=== PATIENT | female | born 1935 | race Caucasian/White ===

== ENCOUNTER → 2016-08-05 | Outpatient (CLI) | payer OTHER, MEDICARE | LOC: LAB 09:23 | PROVIDERS: ATTEND Internal Medicine | DX: E03.9 Hypothyroidism, unspecified (principal) | CPT/HCPCS: 36415; 84443 ==

== ENCOUNTER → 2016-08-12 | Outpatient (CLI) | payer OTHER, MEDICARE | LOC: MOB LAB 11:25 | PROVIDERS: ATTEND Internal Medicine | DX: I50.42 Chronic combined systolic (congestive) and diastolic (congestive) heart failure (principal) | CPT/HCPCS: 36415; 83880 ==

== ENCOUNTER → 2016-10-28 | Outpatient (CLI) | payer OTHER, MEDICARE | LOC: SLEEP LAB 19:08 | PROVIDERS: ATTEND Internal Medicine | DX: G47.33 Obstructive sleep apnea (adult) (pediatric) (principal) | CPT/HCPCS: 95811 ==

== ENCOUNTER → 2016-11-12 | Outpatient (CLI) | payer OTHER, MEDICARE | LOC: MMPC 11:11 | PROVIDERS: ATTEND Internal Medicine | DX: I25.10 Atherosclerotic heart disease of native coronary artery without angina pectoris (principal); E03.9 Hypothyroidism, unspecified; E78.5 Hyperlipidemia, unspecified; R09.89 Other specified symptoms and signs involving the circulatory and respiratory systems | CPT/HCPCS: 99214; G0463 ==

== ENCOUNTER → 2016-11-26 | Outpatient (CLI) | payer OTHER, MEDICARE | LOC: MMPC 10:00 | PROVIDERS: ATTEND Podiatrist Foot & Ankle Surgery | DX: L60.3 Nail dystrophy (principal) | CPT/HCPCS: 11720 ×2; G0463 ==

== ENCOUNTER → 2016-12-24 | Outpatient (CLI) | payer OTHER, MEDICARE | LOC: MMPC 09:00 | PROVIDERS: ATTEND Physician Assistant Medical | DX: J30.1 Allergic rhinitis due to pollen (principal); H61.22 Impacted cerumen, left ear | CPT/HCPCS: 99213; G0463 ==

== ENCOUNTER 2018-09-20 08:12 | Inpatient (IN) ==
[2018-09-20] MEDS ORDERED: Sodium Chloride 0.9% 1,000 ML PRIMARY IV ONE (08:25)
[2018-09-20] MEDS ORDERED: PANTOPRAZOLE IV 40 MG VIAL IVP ONE (08:27)
--- NOTE | 2018-09-20 08:33 | PDOC ---
GI Bleed/Rectal Complaint HPI - General Chief Complaint: GI Bleed / Rectal Pain Stated Complaint: BLOODY STOOLS Date Seen by Provider: 09/20/18 Time Seen by Provider: 20:20 Source: POSITIVE: Patient Exam Limitations: POSITIVE: No limitations Nurse's Notes Reviewed & Considered: Yes - History of Present Illness Initial Comments: The patient is an 83-year-old female who presents to the emergency department with blood in her stool. She states that she woke up at approximately 6 AM this morning and had a bowel movement which was mostly darkish colored blood. She states that she has had 3 more bowel movements since then all containing mostly blood. She states that they have all been fairly good-sized bowel movements. She states that she was starting to feel weak at home and subsequently came here to the emergency department. She does have associated nausea however has not had any vomiting. She denies any current abdominal pain. She has had previous cholecystectomy and appendectomy. She also does take Plavix secondary to history of stents placed in 2014. She denies fevers or chills or any recent illness. - Patient Home Medications Home Medications: Home Medications vit C 250 mg-E 200 unit-zinc 40 mg-copper 1 al-yulctn-dnybwe capsule 250 cap PO BID cap 03/02/17 aspirin 81 mg chewable tablet 81 mg PO QDAY tab 07/22/17 nitroglycerin 0.4 mg sublingual tablet 0.4 mg SL Q5-15M PRN 07/22/17 omega-3 fatty acids-fish oil 360 mg-1,200 mg capsule 1 cap PO QDAY cap 07/22/17 clopidogrel 75 mg tablet 75 mg PO QDAY #90 tab 04/18/18 atorvastatin 40 mg tablet 40 mg PO QHS #90 tab 05/16/18 carvedilol 12.5 mg tablet 12.5 mg PO BID #180 tab 05/16/18 isosorbide mononitrate ER 30 mg tablet,extended release 24 hr 30 mg PO QDAY #90 tab 05/16/18 lisinopril 40 mg tablet 40 mg PO BID #180 tab 05/16/18 pantoprazole 40 mg tablet,delayed release 40 mg PO QDAY #90 tab 05/16/18 potassium chloride ER 10 mEq tablet,extended release 10 meq PO QDAY #30 tab 05/16/18 ropinirole 2 mg tablet 2 mg PO QDAY #90 tab 05/16/18 chlorthalidone 25 mg tablet 25 mg PO QDAY #90 tab 06/15/18 levothyroxine 100 mcg tablet 100 mcg PO QDAY #30 tab 06/30/18 calcium carbonate 600 mg calcium (1,500 mg) tablet 600 mg PO BID #180 tab 07/14/18 tizanidine 4 mg capsule 4 mg PO Q8H #60 cap 08/17/18 - Patient Allergies Allergies/Adverse Reactions: Allergies Allergy/AdvReac Type Severity Reaction Status Date / Time amlodipine Allergy Mild Dizziness Verified 09/20/18 08:26 levofloxacin [From Levaquin] AdvReac Severe NOT Verified 09/20/18 08:26 APPLICABLE Past Medical History - heen HEENT History: Cataracts, Hard of Hearing, Dentures/Partials Additional HEENT History: 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 Micro valve. CARDIAC STENT 2015 Respiratory History: Shortness of Breath, Pneumonia, Snoring Gastrointestinal History: GERD Additional Gastrointestinal History: H-PYLORI/HEMORRHOIDS / AORTIC ANEURISM Genitourinary History: Renal Failure, Other (please comment) Additional Genitourinary History: RENAL ARTERY STENOSIS/CHRONIC RENAL INSUFFICIENCY FROM CONTRAST. Third stage kidney failure. Endocrine History: Hypothyroidism, Other (please comment) Additional Endocrine History: GRAVES DISEASE. 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 SEVERAL YRS AGO Blood Disorders: Denies History Psychiatric History: Denies History History of Sexually Transmitted Diseases: No Cancer History: Denies History History of MDRO: No History of Other Communicable Diseases: No Alcohol Use: None In the Past 12 Months, Have Used or Abuse Any Substance: None Previous Surgical History: Yes Type / Date of Surgery: CATARACT EXT RIGHT /COLONOSCOPY/RENAL STENTING/CARDIAC CATH/BILATERAL DYLAN /APPY/TONSILS/THYROIDECTOMY/ CARDIAC STENT 2015 Anesthesia Reactions: Yes (PONV SEVERE WITH LEFT HIP TOTAL) Malignant Hyperthermia: No Significant Family History: Cancer, Hypertension Past Medical History Reviewed: Reviewed - No Changes ROS - Limitations ROS Limitations: No Limitations Constitution: DENIES: Chills, Fever Cardiovascular: REPORTS: Denies Cardiac Symptoms Respiratory: REPORTS: Denies Resp Symptoms, Cough Non Productive Neurological: REPORTS: Denies Neuro Symptoms Gastrointestinal: REPORTS: Nausea, Black Stools, Bloody Stools. DENIES: Abdominal Pain, Vomitting Musculoskeletal: REPORTS: Denies MS Symptoms Genitourinary: REPORTS: Denies Symptoms Eyes: REPORTS: Denies Symptoms ENT: REPORTS: Denies Symptoms Skin: DENIES: Rash GI Bleed / Rectal Complaint PE - General Appearance General Appearance: POSITIVE: Alert, Cooperative, No Acute Distress - HEENT HEENT: POSITIVE: Head Inspection Nml, Eyes Inspection Nml, Ears Inspection Nml, Nose Inspection Nml, Pharynx Inspect. Nml, Pale Conjunctivae - Neck Neck: POSITIVE: Lymphadenopathy. NEGATIVE: Normal Inspection - Respiratory Respiratory: POSITIVE: No Respiratory Distress, Breath Sounds Normal - Cardiovascular Cardiovascular: POSITIVE: Regular Rate and Rhythm, Heart Sounds Normal Peripheral Pulses: Dorsalis-pedis (R): 2+, Dorsalis-pedis (L): 2+ - Abdomen Abdomen: Soft: (All Quadrants), Normal Bowel Sounds: (All Quadrants), No Splenomegaly: (All Quadrants), No Hepatomegaly: (All Quadrants), No Guarding: (All Quadrants), No Rebound: (All Quadrants), No Distention: (All Quadrants) - Genital / Rectal Rectal: POSITIVE: Other (Stool is grossly bloody) - Skin Skin: POSITIVE: Color Normal - Extremities Extremity: Normal ROM: (All Extremities), Normal Inspection: (All Extremities) - Neurological / Psychological Neurological: POSITIVE: Oriented X3, lambskin trimmer Normal As Tested GI Bleed / Rectal Progress - Patient's Progress MDM / ED Course: On arrival the patient is hemodynamically stable. By history she has had 4 fairly large bowel movements containing mostly blood this morning. 2 large-bore IVs were initiated and she was typed and crossed for 2 units of packed red blood cells. Baseline labs and CT scan of the abdomen and pelvis were ordered. Patient care was transferred to Dr. White at 0835 with studies pending. - Consult Counseled: POSITIVE: Patient Patient Care Time - Estimated PCT Patient Care Time (In Minutes): 15 Vital Signs - VS Reviewed Vital Signs Reviewed: Yes Discharge Clinical Impression: GI bleed Discharge Disposition: Other (Patient care transferred to Dr. White at 8:35 AM) Condition: Stable Follow Up With: DIANE SWANN [Primary Care Provider] -
[2018-09-20 09:20] LABS: BASOPHILS # (AUTO) 0.03 10*3/UL; BASOPHILS % (AUTO) 0.4 % (0-1); EOSINOPHILS # (AUTO) 0.08 10*3/UL; EOSINOPHILS % (AUTO) 1.1 % (0-8); Hemoglobin [HGB] 9.9 g/dL (12.0-16.0); MEAN CORPUSCULAR HEMOGLOBIN 30.9 PG (27-31); MEAN CORPUSCULAR VOLUME 93.8 FL (81-99); MEAN PLATELET VOLUME 10.7 FL (7.4-12.2); MONOCYTES # (AUTO) 0.29 10*3/UL (0.3-0.8); MONOCYTES % (AUTO) 3.9 % (5-15); NEUTROPHILS # (AUTO) 5.68 10*3/UL; NEUTROPHILS % (AUTO) 75.8 % (50-80)
[2018-09-20 09:21] LABS: PLATELET MORPHOLOGY COMMENT NORMAL MORPHOLOGY (NORM); RBC MORPHOLOGY COMMENT NORMAL MORPHOLOGY (NORM); WBC MORPHOLOGY COMMENT NORMAL MORPHOLOGY (NORM)
[2018-09-20 10:36] LABS: BLOOD UREA NITROGEN 31 mg/dL (7-22); BUN/CREATININE RATIO 22.14 (6-20); SERUM ALBUMIN 3.7 g/dL (3.5-4.8)
--- NOTE | 2018-09-20 12:01 | PDOC ---
HPI - History of Present Illness Date of Service: 09/20/18 Time of Service: 12:00 Chief Complaint: blood in stools History of Present Illness: This very nice 83-year-old female who presented to the emergency room with bloody stools. Woke up this morning around 6 AM had a bowel movement which contained dark blood and not bright red and she states and since then had 3 more CONTAINING dark blood associated with some nausea but no vomiting denies any chest pain or abdominal pain she is on Plavix secondary to stents in 2014. She is talking in full sentences and appears comfortable here in the ER she did not take any of her medications this morning Past Medical History Medical History: 1. Coronary artery disease with recent stent insertion. On Plavix. 2. Hypertension. 3. Hypokalemia. 4. Possible congestive heart failure. 5. Postsurgical hypothyroidism. 6. Kristina's syndrome. 7. Graves' disease. 8. Cholecystectomy Surgical History: 1. Hip replacement 2. 2. Tonsillectomy. 3. Cataract surgery 2. 4. Appendectomy Pertinent Family History: Significant for dementia Past Social History: Patient does not smoke or drink. . Has 2 children one with diabetes. She worked as a patient care secretary. Tobacco Use: Former Smoker In the Past 12 Months, Have Used or Abuse Any of the Following Substance: None Medication / Allergies Home Medications: Home Medications Medication Instructions Recorded Confirmed Type vit C 250 mg-E 200 unit-zinc 40 250 cap PO BID cap 03/02/17 09/20/18 History mg-copper 1 mu-bzosac-abxecm capsule aspirin 81 mg chewable tablet 81 mg PO QDAY tab 07/22/17 09/20/18 History nitroglycerin 0.4 mg sublingual 0.4 mg SL Q5-15M PRN 07/22/17 09/20/18 History tablet omega-3 fatty acids-fish oil 360 1 cap PO QDAY cap 07/22/17 09/20/18 History mg-1,200 mg capsule clopidogrel 75 mg tablet 75 mg PO QDAY #90 tab 04/18/18 09/20/18 Rx atorvastatin 40 mg tablet 40 mg PO QHS #90 tab 05/16/18 09/20/18 Rx carvedilol 12.5 mg tablet 12.5 mg PO BID #180 tab 05/16/18 09/20/18 Rx isosorbide mononitrate ER 30 mg 30 mg PO QDAY #90 tab 05/16/18 09/20/18 Rx tablet,extended release 24 hr lisinopril 40 mg tablet 40 mg PO BID #180 tab 05/16/18 09/20/18 Rx pantoprazole 40 mg tablet,delayed 40 mg PO QDAY #90 tab 05/16/18 09/20/18 Rx release potassium chloride ER 10 mEq 10 meq PO QDAY #30 tab 05/16/18 09/20/18 Rx tablet,extended release ropinirole 2 mg tablet 2 mg PO QDAY #90 tab 05/16/18 09/20/18 Rx chlorthalidone 25 mg tablet 25 mg PO QDAY #90 tab 06/15/18 09/20/18 Rx levothyroxine 100 mcg tablet 100 mcg PO QDAY #30 tab 06/30/18 09/20/18 Rx calcium carbonate 600 mg calcium 600 mg PO BID #180 tab 07/14/18 09/20/18 Rx (1,500 mg) tablet tizanidine 4 mg capsule 4 mg PO Q8H #60 cap 08/17/18 09/20/18 Rx Allergies/Adverse Reactions: Allergies Allergy/AdvReac Type Severity Reaction Status Date / Time amlodipine Allergy Mild Dizziness Verified 09/20/18 08:26 levofloxacin [From Levaquin] AdvReac Severe NOT Verified 09/20/18 08:26 APPLICABLE Review of Systems - Review of Systems All Systems: Reviewed & No Additional Complaints Except as Stated - Respiratory Respiratory: DENIES: Negative System Review, Cough, Sputum, Dyspnea At Rest, Dyspnea with Exertion, Pleuritic Pain, Hemoptysis, Wheezing, Other, See HPI - Cardiovascular Cardiovascular: DENIES: Negative System Review, Chest Pain, Edema, Syncope, Palpitations, Orthopnea, Paroxysmal Nocturnal Dyspnea, Other, See HPI - Gastrointestinal Gastrointestinal / Abdominal: REPORTS: Nausea, Bloody Stool Exam - Vitals Vital Signs: Vital Signs Temperature 96.4 F Temperature Source Temporal Artery Scan Pulse Rate [Pulse Oximeter] 60 Respiratory Rate 18 Blood Pressure [Left Arm] 171/65 Pulse Ox 97 Oxygen Delivery Method Room Air Height 5 ft 7 in Weight 156 lb - General General Appearance: No Acute Distress, Cooperative - Head Head Exam: Normal Inspection, Normocephalic, Atraumatic - Eye Eye Exam: POSITIVE: Normal Appearance, PERRL, EOMI, No Scleral Icterus - Respiratory Respiratory Exam: POSITIVE: Clear to Auscultation - Bilaterally, Breathing Non Labored, Normal To Percussion, Normal to Percussion and Palpation - Cardiovascular Cardiovascular Exam: POSITIVE: RRR, No Murmur, No Clicks, No Gallops, No Rubs, PMI Non-Displaced - GI/Abdominal GI/Abdominal Exam: POSITIVE: Normal Bowel Sounds, Non Tender, Non Distended, Soft, No Masses, No Hepatomegaly, No Splenomegaly, No Organomegaly - Extremities Extremities Exam: POSITIVE: No Clubbing Present, No Edema Present, No Cyanosis Present Results - Labs CBC and BMP: 09/20/18 08:25 09/20/18 09:15 Assessment and Plan - Patient Problems (1) GI bleed Current Visit: Yes Status: Acute Comment: Most likely lower GI bleed, Dr. Kaushal Young was consult did, lactated ringer started at 125 an hour, she received Protonix IV in the ER, type and cross was for 2 units on hold I will hold more units as recommended by Dr. Kaushal Young. I will hold the Plavix and her aspirin continue other cardiac medications blood pressure seems to be fine at present time Code(s): K92.2 - Gastrointestinal hemorrhage, unspecified (2) Anemia Current Visit: Yes Status: Acute Code(s): D64.9 - Anemia, unspecified (3) Acute kidney failure Current Visit: No Status: Acute Code(s): N17.9 - Acute kidney failure, unspecified Qualifiers: Acute renal failure type: unspecified Qualified Code(s): N17.9 - Acute kidney failure, unspecified
[2018-09-20] MEDS ORDERED: LIDOCAINE W/ SODIUM BICARB 0.5 ML SYR SUBD PRN (12:46)
[2018-09-20] MEDS ORDERED: NITROGLYCERIN 0.4 MG SL TAB (BOTTLE OF 3) SL PRN (12:46)
[2018-09-20] MEDS ORDERED: PANTOPRAZOLE IV 40 MG VIAL IVP SCH (12:46)
[2018-09-20] MEDS ORDERED: ONDANSETRON 4 MG/2 ML VIAL IV PRN (12:46)
--- NOTE | 2018-09-20 12:47 | PDOC ---
GI Bleed/Rectal Complaint HPI - General Chief Complaint: GI Bleed / Rectal Pain Stated Complaint: BLOODY STOOLS Date Seen by Provider: 09/20/18 Time Seen by Provider: 08:50 Source: POSITIVE: Patient, Spouse, RN/MD Exam Limitations: POSITIVE: No limitations Nurse's Notes Reviewed & Considered: Yes - History of Present Illness Initial Comments: The patient is a 83-year-old female. Her brings her to the emergency room. Patient states that around 6 AM, approximately 3 hours MEAT SLICER she began to feel "queasy" and she had a bowel movement. She reports that the bowel movement was grossly bloody and dark red to black. She brings a specimen in with her which is strongly Hemoccult positive. She states that since onset of her symptoms she's had 4-5 loose bowel movements "like diarrhea" which have been bloody. Patient has not had any similar previous episodes. She is not on any anticoagulants. She states that she did have a myocardial infarction with a coronary artery stents placed and she is on Plavix. She states she hasn't abdominal aortic aneurysm and a history of hypertension. She's had a cholecystectomy, appendectomy and bilateral hip replacement. She does not routinely take nonsteroidal anti-inflammatory drugs, but she is on Plavix daily. She's not had any abdominal pain or dyspepsia. No history of previous similar episodes. No syncope or near-syncope. Patient was initially seen in the emergency room by Dr. Crocker, the emergency room doctor on duty upon her presentation. Dr. Crocker ordered a CMP, CBC, coag studies and a CT scan of her abdomen and pelvis. I assumed care of this patient at 8:50 AM. Body Location Affected: REPORTS: Abdomen (Gastrointestinal bleeding) Timing: REPORTS: Intermittent (4 bloody bowel movements in the past 3 hours) Duration: 4-6 hours Severity: Moderate Quality: REPORTS: Other (Patient denies any pain anywhere) Context: REPORTS: None Associated Symptoms: REPORTS: Maroon Stools Last BM (Date): 09/20/18 Number of Episodes of Diarrhea (in past 24hrs): 4 Similar Symptoms Previously: No Recent Care Received: REPORTS: Denies Any Prior Injuries Related to Current Complaint?: No - Patient Home Medications Home Medications: Home Medications vit C 250 mg-E 200 unit-zinc 40 mg-copper 1 zp-wqzjnh-hqphcu capsule 250 cap PO BID cap 03/02/17 aspirin 81 mg chewable tablet 81 mg PO QDAY tab 07/22/17 nitroglycerin 0.4 mg sublingual tablet 0.4 mg SL Q5-15M PRN 07/22/17 omega-3 fatty acids-fish oil 360 mg-1,200 mg capsule 1 cap PO QDAY cap 07/22/17 clopidogrel 75 mg tablet 75 mg PO QDAY #90 tab 04/18/18 atorvastatin 40 mg tablet 40 mg PO QHS #90 tab 05/16/18 carvedilol 12.5 mg tablet 12.5 mg PO BID #180 tab 05/16/18 isosorbide mononitrate ER 30 mg tablet,extended release 24 hr 30 mg PO QDAY #90 tab 05/16/18 lisinopril 40 mg tablet 40 mg PO BID #180 tab 05/16/18 pantoprazole 40 mg tablet,delayed release 40 mg PO QDAY #90 tab 05/16/18 potassium chloride ER 10 mEq tablet,extended release 10 meq PO QDAY #30 tab 05/16/18 ropinirole 2 mg tablet 2 mg PO QDAY #90 tab 05/16/18 chlorthalidone 25 mg tablet 25 mg PO QDAY #90 tab 06/15/18 levothyroxine 100 mcg tablet 100 mcg PO QDAY #30 tab 06/30/18 calcium carbonate 600 mg calcium (1,500 mg) tablet 600 mg PO BID #180 tab 07/14/18 tizanidine 4 mg capsule 4 mg PO Q8H #60 cap 08/17/18 - Patient Allergies Allergies/Adverse Reactions: Allergies Allergy/AdvReac Type Severity Reaction Status Date / Time amlodipine Allergy Mild Dizziness Verified 09/20/18 08:26 levofloxacin [From Levaquin] AdvReac Severe NOT Verified 09/20/18 08:26 APPLICABLE Past Medical History - heen HEENT History: Cataracts, Hard of Hearing, Dentures/Partials Additional HEENT History: 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 AAA. CARDIAC STENT 2016 Respiratory History: Shortness of Breath, Pneumonia, Snoring Gastrointestinal History: GERD Additional Gastrointestinal History: H-PYLORI/HEMORRHOIDS / AORTIC ANEURISM Genitourinary History: Renal Failure, Other (please comment) Additional Genitourinary History: RENAL ARTERY STENOSIS/CHRONIC RENAL INSUFFICIENCY FROM CONTRAST. Third stage kidney failure. Endocrine History: Hypothyroidism, Other (please comment) Additional Endocrine History: GRAVES DISEASE. 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/TIA SEVERAL YRS AGO Blood Disorders: Denies History Psychiatric History: Denies History History of Sexually Transmitted Diseases: No Female Reproductive History: Denies History Cancer History: Denies History In Past Year Been Physically Harmed or Verbally Threatened: No History of MDRO: No History of Other Communicable Diseases: No Tobacco Use: Former Smoker Alcohol Use: None In the Past 12 Months, Have Used or Abuse Any Substance: None Previous Surgical History: Yes Type / Date of Surgery: CATARACT EXT RIGHT /COLONOSCOPY/RENAL STENTING/CARDIAC CATH/BILATERAL DYLAN /APPY/TONSILS/THYROIDECTOMY/ CARDIAC STENT 2016/ CHOLECYSTECTOMY Anesthesia Reactions: Yes (PONV SEVERE WITH LEFT HIP TOTAL) Malignant Hyperthermia: No Significant Family History: Cancer, Hypertension Past Medical History Reviewed: Reviewed - No Changes ROS - Limitations ROS Limitations: No Limitations Constitution: REPORTS: Denies Symptoms Cardiovascular: REPORTS: Denies Cardiac Symptoms Respiratory: REPORTS: Denies Resp Symptoms Neurological: REPORTS: Denies Neuro Symptoms Gastrointestinal: REPORTS: Nausea, Bloody Stools Endocrine: REPORTS: Denies Symptoms Musculoskeletal: REPORTS: Denies MS Symptoms Genitourinary: REPORTS: Denies Symptoms Eyes: REPORTS: Denies Symptoms ENT: REPORTS: Denies Symptoms Skin: REPORTS: Denies Skin Symptoms, Other (Pale) Lympathic: REPORTS: Denies Lympathic Symptoms Immunologic: POSITIVE: Denies Symptoms Psychiatric: POSITIVE: Denies Psych Symptoms GI Bleed / Rectal Complaint PE - General Appearance General Appearance: POSITIVE: Alert, Cooperative, No Acute Distress, No Evidence of Trauma - HEENT HEENT: POSITIVE: Head Inspection Nml, Eyes Inspection Nml, Ears Inspection Nml, Nose Inspection Nml, Oral/Dental Inspect. Nml, Pharynx Inspect. Nml, PERRL, EOMI - Neck Neck: POSITIVE: Normal Inspection, No Apparent Injury - Respiratory Respiratory: POSITIVE: No Respiratory Distress, Breath Sounds Normal, Chest Non- Tender - Cardiovascular Cardiovascular: POSITIVE: Regular Rate and Rhythm Peripheral Pulses: Radial (R): 2+, Radial (L): 2+ - Abdomen Abdomen: Soft: (All Quadrants), Normal Bowel Sounds: (All Quadrants), Denies Tenderness: (All Quadrants), No Splenomegaly: (All Quadrants), No Hepatomegaly: (All Quadrants), No Guarding: (All Quadrants), No Rebound: (All Quadrants), No Palpable Pulse: (All Quadrants), No Palpabale Mass: (All Quadrants), No Distention: (All Quadrants), No Rigidity: (All Quadrants) - Genital / Rectal Rectal: POSITIVE: Non-Tender, Bloody Stool (Maroon-colored stool), Heme Positive Stool. NEGATIVE: Heme Negative Stool, Black Stool - Skin Skin: POSITIVE: No Rash, Warm, Dry. NEGATIVE: Color Normal (Patient pale) - Extremities Extremity: Non-Tender: (All Extremities), Normal ROM: (All Extremities), Normal Inspection: (All Extremities) - Neurological / Psychological Neurological: POSITIVE: Affect Apporpriate, Oriented X3, hog grader Normal As Tested, Motor Normal, Sensation Normal GI Bleed / Rectal Progress - Results Reviewed by me Xrays/CTs/US Reviewed by me: No Discussed with Radiologist: No Radiology Findings: CT scan abdomen and pelvis without contrast has been accomplished, but radiologist has not yet reviewed the findings. Lab Results Reviewed by Me: Yes Lab Results:: Laboratory Results 09/20/18 09/20/18 09/20/18 08:25 08:25 09:15 WBC 7.49 RBC 3.20 L Hgb 9.9 L Hct 30.0 L MCV 93.8 MCH 30.9 MCHC 33.0 RDW Std Deviation 42.8 RDW Coeff of Ciara 13.0 Plt Count 221 MPV 10.7 Immature Gran % (Auto) 0.1 Neut % (Auto) 75.8 Lymph % (Auto) 18.7 [place] % (Auto) 3.9 L Eos % (Auto) 1.1 Baso % (Auto) 0.4 Immature Gran # (Auto) 0.01 Neut # (Auto) 5.68 Lymph # (Auto) 1.40 [place] # (Auto) 0.29 L Eos # (Auto) 0.08 Baso # (Auto) 0.03 WBC Morphology Comment Normal morphology Plt Morphology Comment Normal morphology RBC Morph Comment Normal morphology PT 10.0 INR 0.98 APTT Sodium 136 Potassium 4.7 Chloride 106 Carbon Dioxide 23 Anion Gap 7 BUN 31 H Creatinine 1.4 H Estimated GFR Ammonium Sulfate Operator BUN/Creatinine Ratio 22.14 H Glucose 87 Calculated Osmolality 287.0 Calcium 9.6 Magnesium 1.5 L Total Bilirubin 0.6 AST 23 ALT 14 Alkaline Phosphatase 61 C-Reactive Protein < 0.5 Total Protein 6.0 L Albumin 3.7 Globulin 2.3 L Albumin/Globulin Ratio 1.60 Blood Type Antibody Screen Crossmatch 09/20/18 09/20/18 09:15 09:15 WBC RBC Hgb Hct MCV MCH MCHC RDW Std Deviation RDW Coeff of Ciara Plt Count MPV Immature Gran % (Auto) Neut % (Auto) Lymph % (Auto) [place] % (Auto) Eos % (Auto) Baso % (Auto) Immature Gran # (Auto) Neut # (Auto) Lymph # (Auto) [place] # (Auto) Eos # (Auto) Baso # (Auto) WBC Morphology Comment Plt Morphology Comment RBC Morph Comment PT INR APTT 18.7 L Sodium Potassium Chloride Carbon Dioxide Anion Gap BUN Creatinine Estimated GFR BUN/Creatinine Ratio Glucose Calculated Osmolality Calcium Magnesium Total Bilirubin AST ALT Alkaline Phosphatase C-Reactive Protein Total Protein Albumin Globulin Albumin/Globulin Ratio Blood Type O NEGATIVE Antibody Screen Negative Crossmatch See Detail CBC and BMP: 09/20/18 08:25 09/20/18 09:15 - Patient's Progress Pain Medication Addressed: POSITIVE: Not Applicable School/Work Release Addressed: POSITIVE: Not Applicable Re-Examine Time:: 11:00 Re-Examine Comment: Results of laboratory studies discussed with patient and her . Hemoglobin 9.9 and hematocrit 30.0. Blood has been typed and s creened. Case was discussed with Dr. Winkler, hospitalist and Dr. Young, surgeon. Patient is admitted by Dr. Hurley with consultation to Dr. Young for further evaluation and treatment. Status: POSITIVE: Unchanged, Re-Examined - Consult Consult (If Yes, Name of Consulting MD & Time Called): Yes (Dr. Winkler, hospitalist and Dr. Young, surgeon [id number],) Consulting MD will see pt:: [place] [facility] [place] Counseled: POSITIVE: Patient, Family, RE: Lab Results, RE: DX, RE: Need for F/U Patient Care Time - Estimated PCT Patient Care Time (In Minutes): 50 Vital Signs - Recent Vital Signs Vital Signs: Vital Signs (Last 8 hours) Temp Pulse Resp BP Pulse Ox 09/20/18 08:25 96.4 F L 60 18 171/65 97 - VS Reviewed Vital Signs Reviewed: Yes Discharge Clinical Impression: GI bleed Discharge Disposition: Admit to Inpatient Condition: Stable Follow Up With: DIANE SWANN [Primary Care Provider] - Date Decision to Admit to Inpatient: 09/20/18 Time Decision to Admit to Inpatient: 11:00
[2018-09-20] MEDS: Lactated Ringers 1,000 ML PRIMARY IV SCH ×2 (13:57→22:11)
[2018-09-20] MEDS ORDERED: Magnesium Sulfate 2gm (Premix) 2 GM/50 ML BAG IV ONE (15:37)
[2018-09-20 18:26] LABS: BASOPHILS # (AUTO) 0.02 10*3/UL; BASOPHILS % (AUTO) 0.3 % (0-1); EOSINOPHILS # (AUTO) 0.05 10*3/UL; EOSINOPHILS % (AUTO) 0.8 % (0-8); Hematocrit [HCT] 22.4 % (37.0-47.0); Hemoglobin [HGB] 7.3 g/dL (12.0-16.0); LYMPHOCYTES # (AUTO) 2.66 10*3/uL; MEAN CORPUSCULAR HEMOGLOBIN 30.5 PG (27-31); MEAN CORPUSCULAR HGB CONC 32.6 g/dL (33-37); MEAN CORPUSCULAR VOLUME 93.7 FL (81-99); MEAN PLATELET VOLUME 10.1 FL (7.4-12.2); MONOCYTES # (AUTO) 0.33 10*3/UL (0.3-0.8); MONOCYTES % (AUTO) 5.1 % (5-15); NEUTROPHILS # (AUTO) 3.35 10*3/UL; NEUTROPHILS % (AUTO) 52.2 % (50-80); RED BLOOD COUNT 2.39 10^6/uL (4.20-5.40)
[2018-09-20 18:27] LABS: PLATELET MORPHOLOGY COMMENT NORMAL MORPHOLOGY (NORM); RBC MORPHOLOGY COMMENT NORMAL MORPHOLOGY (NORM); WBC MORPHOLOGY COMMENT NORMAL MORPHOLOGY (NORM)
--- NOTE | 2018-09-20 19:00 | CONSULT ---
Consult Note - Consult Consult Date: 09/20/18 (patient was seen initially at 12:30 PM) Reason for Consult: PreOp Consulation : General Surgery Requesting Physician: Dr. Hao Lopes Primary Care Provider: Corby Livingston MD - History of Present Illness History of Present Illness: The patient is an 83-year-old female who reports she woke up about 4 AM with the need to have a bowel movement. She had a mostly liquid stool and noticed that it was bloody. There was some feces in it as well. She had a total of 4-5 bloody bowel movements between 4 and 6 AM. She presented to the emergency room for the same. She brought in a stool sample which was grossly positive. Her digital rectal exam showed gross blood. She has not had any further bloody bowel movements since arrival to the hospital. That was roughly 8 AM. She has never passed bright red blood per rectum in the past. Her stools tend to be loose to constipated. She denies change in the size or the shape of the stool. She denies a change in her bowel habits except for today. She denies abdominal or anal pain. She had a colonoscopy in approximately 2007. She had a CT scan this morning which shows sigmoid diverticulosis. She mentioned to me she was told she had an abdominal aortic aneurysm but none is seen on her CT scan from this morning. I saw her initially in the emergency room about 12:30. I am just now dictating the note. The patient has had stable vitals. Patient denies a history of heartburn although she is on pantoprazole. Sometimes she feels belchy. She reports she had a remote history of an ulcer. She was nauseated earlier this morning but is no longer nauseated now. Patient was slightly anemic in July 2018. Her hemoglobin was 11.2. On arrival to the emergency room her hemoglobin was 9.4 and her hematocrit was 30. At 5 PM tonight her hemoglobin dropped to 7.3 and her hematocrit dropped to 22.4. This was following hydration. The hospitalist who is aware and I expect she will get 2 units of blood shortly. Again she has passed no further bright red blood or even maroon blood per rectum. Review of Systems - Gastrointestinal Gastrointestinal / Abdominal: REPORTS: Nausea, Diarrhea, Constipation, Bloody Stool, Bright Red Blood per Rectum, See HPI Past Medical History Medical History: 1. Coronary artery disease with stent insertion. On Plavix. History of renal stent placement. History of myocardial infarction. 2. Hypertension. 3. Hypokalemia. 4. Possible congestive heart failure. 5. Postsurgical hypothyroidism. 6. Kristina's syndrome. 7. Graves' disease. 8. Stage III kidney disease Surgical History: 1. Hip replacement 2. 2. Tonsillectomy and adenoidectomy. 3. Cataract surgery 2. 4. Appendectomy. 5. Status post cholecystectomy. 6. History of colonoscopy in approximately 2007 Pertinent Family History: Significant for dementia Past Social History: Patient does not smoke or drink. . Has 2 children one with diabetes. She worked as a secretary bookkeeper. Tobacco Use: Former Smoker In the Past 12 Months, Have Used or Abuse Any of the Following Substance: None Medication / Allergies Home Medications: Home Medications Medication Instructions Recorded Confirmed Type vit C 250 mg-E 200 unit-zinc 40 250 cap PO BID cap 03/02/17 09/20/18 History mg-copper 1 [id number] capsule aspirin 81 mg chewable tablet 81 mg PO QDAY tab 07/22/17 09/20/18 History nitroglycerin 0.4 mg sublingual 0.4 mg SL Q5-15M PRN 07/22/17 09/20/18 History tablet omega-3 fatty acids-fish oil 360 1 cap PO QDAY cap 07/22/17 09/20/18 History mg-1,200 mg capsule clopidogrel 75 mg tablet 75 mg PO QDAY #90 tab 04/18/18 09/20/18 Rx atorvastatin 40 mg tablet 40 mg PO QHS #90 tab 05/16/18 09/20/18 Rx carvedilol 12.5 mg tablet 12.5 mg PO BID #180 tab 05/16/18 09/20/18 Rx isosorbide mononitrate ER 30 mg 30 mg PO QDAY #90 tab 05/16/18 09/20/18 Rx tablet,extended release 24 hr lisinopril 40 mg tablet 40 mg PO BID #180 tab 05/16/18 09/20/18 Rx pantoprazole 40 mg tablet,delayed 40 mg PO QDAY #90 tab 05/16/18 09/20/18 Rx release potassium chloride ER 10 mEq 10 meq PO QDAY #30 tab 05/16/18 09/20/18 Rx tablet,extended release ropinirole 2 mg tablet 2 mg PO QDAY #90 tab 05/16/18 09/20/18 Rx chlorthalidone 25 mg tablet 25 mg PO QDAY #90 tab 06/15/18 09/20/18 Rx levothyroxine 100 mcg tablet 100 mcg PO QDAY #30 tab 06/30/18 09/20/18 Rx calcium carbonate 600 mg calcium 600 mg PO BID #180 tab 07/14/18 09/20/18 Rx (1,500 mg) tablet tizanidine 4 mg capsule 4 mg PO Q8H #60 cap 08/17/18 09/20/18 Rx Allergies/Adverse Reactions: Allergies Allergy/AdvReac Type Severity Reaction Status Date / Time amlodipine Allergy Mild Dizziness Verified 09/20/18 13:06 levofloxacin [From Levaquin] AdvReac Severe NOT Verified 09/20/18 13:06 APPLICABLE Results - Labs CBC and BMP: 09/20/18 18:23 09/20/18 09:15 - Imaging Status: Image Reviewed by Me (And discussed with the radiologist. No gross abnormalities per his verbal report.) Exam - Vitals Vital Signs: Vital Signs Temperature 98.5 F Temperature Source Oral Pulse Rate [Pulse Oximeter] 56 Pulse Rate 54 Respiratory Rate 16 Blood Pressure [Left Arm] 145/45 Blood Pressure 169/103 Pulse Ox 94 Oxygen Delivery Method Room Air Height 5 ft 7 in Weight 153 lb 12.8 oz - General General Appearance: No Acute Distress, Cooperative, Obese Additional General Exam Details: Pale. - Respiratory Respiratory Exam: POSITIVE: Clear to Auscultation - Bilaterally, Breathing Non Labored - Cardiovascular Cardiovascular Exam: POSITIVE: RRR, No Murmur - GI/Abdominal GI/Abdominal Exam: POSITIVE: Normal Bowel Sounds, Non Tender, Non Distended, Soft - Rectal Rectal Exam: POSITIVE: Deferred (Deferred. Done in the emergency room with grossly Hemoccult positive stool) - Neurological Neurological Exam: POSITIVE: Alert, Oriented x 3 - Psychiatric Psychiatric Exam: POSITIVE: Normal Affect, Normal Mood Assessment and Plan - Patient Problems (1) Acute lower GI bleeding Current Visit: Yes Status: Acute Priority: High Onset Date: 09/20/18 Comment: Most likely diverticular. Has not passed any blood in the last 13 hours. Most likely resolved. Patient needs 2 units of blood. We will continue to monitor in the ICU. If further bleeding we will do an emergent upper and lower endoscopy. Consider tagged red cell scan pending her clinical course. The possibility of operative intervention was also discussed with the patient and her . Patient will need upper and lower endoscopy on an elective basis in the fairly near future. The above has been discussed with the patient and her family as well as the hospitalist. I will check her in the morning. Code(s): K92.2 - Gastrointestinal hemorrhage, unspecified
--- NOTE | 2018-09-20 19:41 | DI ---
CT ABDOMEN SCAN WITHOUT IV CONTRAST, 09/20/2018 11:11 AM : Clinical History: Gastrointestinal bleeding. Previous Exam: 07/20/2017. IV Contrast: None administered. Oral Contrast: No oral contrast ordered. Rectal Contrast: No rectal contrast ordered. Lungs: No infiltrate or effusion. The patient either has a prosthetic mitral valve or mitral valve an nulus is heavily calcified. The right and left ventricular chambers are visible on this noncontrast s tudy. This would either indicate severe anemia or there is increased density in the myocardium due to a deposition process such as amyloidosis. Liver: Normal. Gallbladder: Status post cholecystectomy. Common bile duct measures 6 mm. Adrenal Glands: Normal. Spleen: Normal. Pancreas: Normal. Kidneys: Normal size, shape, position and contour. No hydronephrosis or hydroureter. No renal or uret eral calculi. A stent is present in the right renal artery. Lymph Nodes: Normal. Masses: None. Ascites: No ascites. Free Air: None. Spine: Normal lower thoracic and lumbar spine. Osteoporosis. READIN. Normal CT abdomen scan without IV contrast. 2. This patient either has severe anemia or has increased density of the myocardium secondary to dep osition disease such as amyloidosis. CT PELVIS SCAN WITHOUT IV CONTRAST, 09/20/2018 11:11 AM: Clinical History: See above. Previous Exam: 07/20/2017. Contrast: None administered. Masses: No masses or enhancing lesions. Ascites: None. Free Air: None. Lymph Nodes: No adenopathy. Appendix: Not identified. No cecal or right lower quadrant inflammatory mass. Small Bowel: Normal small bowel, terminal ileum, and ileocecal valve. Colon: Normal. 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 Bladder: Normal. Hernias: None. Bony Pelvis: Normal sacrum and pelvic bones. Status post bilateral total hip replacements. READING: Normal CT scan of the pelvis without IV contrast. Osteoporosis.
[2018-09-20] MEDS: ATORVASTATIN 40 MG TABLET PO SCH (20:17)
[2018-09-20] MEDS: PANTOPRAZOLE IV 40 MG VIAL IVP SCH (20:17)
[2018-09-20] MEDS ORDERED: CARVEDILOL 12.5 MG PO SCH (21:00)
[2018-09-20] MEDS: Ropinirole Tab 1 MG TAB PO SCH (22:11)
[2018-09-20 23:23] LABS: MEAN CORPUSCULAR HEMOGLOBIN 30.5 PG (27-31); MEAN CORPUSCULAR HGB CONC 32.5 g/dL (33-37); MEAN CORPUSCULAR VOLUME 93.8 FL (81-99); MEAN PLATELET VOLUME 10.6 FL (7.4-12.2); RED BLOOD COUNT 2.1 10^6/uL (4.20-5.40)
[2018-09-20 23:27] LABS: Hematocrit [HCT] 19.7 % (37.0-47.0); Hemoglobin [HGB] 6.4 g/dL (12.0-16.0)
[2018-09-20] MEDS ORDERED: methylPREDNISolone 125 MG/2 ML VIAL IVP ONE (23:29)
[2018-09-20] MEDS ORDERED: ACETAMINOPHEN 500 MG TABLET PO ONE (23:29)
[2018-09-20] MEDS ORDERED: FUROSEMIDE 10 MG/1 ML - 2 ML VIAL IVP ONE (23:30)
[2018-09-20] MEDS ORDERED: Sodium Chloride 0.9% 500 ML PRIMARY IV ONE (23:38)
[2018-09-20] MEDS ORDERED: Sodium Chloride 0.9% 500 ML PRIMARY IV SCH (23:45)
[2018-09-21] MEDS: Lactated Ringers 1,000 ML PRIMARY IV SCH ×5 (04:06→20:58)
[2018-09-21 05:46] LABS: BASOPHILS # (AUTO) 0.01 10*3/UL; BASOPHILS % (AUTO) 0.1 % (0-1); EOSINOPHILS # (AUTO) 0 10*3/UL; EOSINOPHILS % (AUTO) 0 % (0-8); Hematocrit [HCT] 32.4 % (37.0-47.0); Hemoglobin [HGB] 11.2 g/dL (12.0-16.0); MEAN CORPUSCULAR HEMOGLOBIN 31.3 PG (27-31); MEAN CORPUSCULAR HGB CONC 34.6 g/dL (33-37); MEAN CORPUSCULAR VOLUME 90.5 FL (81-99); MEAN PLATELET VOLUME 10.7 FL (7.4-12.2); MONOCYTES # (AUTO) 0.04 10*3/UL (0.3-0.8); MONOCYTES % (AUTO) 0.5 % (5-15); NEUTROPHILS # (AUTO) 6.37 10*3/UL; NEUTROPHILS % (AUTO) 86.8 % (50-80); RED BLOOD COUNT 3.58 10^6/uL (4.20-5.40)
[2018-09-21 05:48] LABS: PLATELET MORPHOLOGY COMMENT NORMAL MORPHOLOGY (NORM); RBC MORPHOLOGY COMMENT NORMAL MORPHOLOGY (NORM); WBC MORPHOLOGY COMMENT NORMAL MORPHOLOGY (NORM)
[2018-09-21 06:06] LABS: BLOOD UREA NITROGEN 32 mg/dL (7-22); BUN/CREATININE RATIO 24.61 (6-20)
[2018-09-21] MEDS ORDERED: LIDOCAINE HCL 2 % 10 ML JELLY URO-JECT TOPICAL PRN (06:07)
[2018-09-21] MEDS: LEVOTHYROXINE 100 MCG TABLET PO SCH (06:08)
[2018-09-21 07:07] LABS: Hematocrit [HCT] 35.9 % (37.0-47.0); Hemoglobin [HGB] 12.2 g/dL (12.0-16.0)
[2018-09-21] MEDS ORDERED: PROPOFOL 10 MG/1 ML (200 MG/20 ML) VIAL IV ONE ×3 (07:33→08:21)
[2018-09-21] MEDS ORDERED: LIDOCAINE 2% VISCOUS(20 MG/1 ML) - 15 ML UD CUP PO ONE (07:33)
[2018-09-21] MEDS ORDERED: LIDOCAINE W/ SODIUM BICARB 0.5 ML SYR ONE (07:59)
--- NOTE | 2018-09-21 08:15 | PDOC(PROG) ---
Date of Service: 09/21/18 Time of Service: 07:15 Interval History: The patient did well through the night until 4 AM. She had an urge to have a bowel movement. She had stool and urine. It was approximately 500 mL of bloody fluid. It was the first thing she had passed per rectum since 6 AM yesterday morning. Her vital signs were stable. She was getting her second unit of blood. I decided to have her finish her blood product and then another hemoglobin and hematocrit. I got called at 6 AM that she had another 600 mL of mixed urine and stool. I arrived at the hospital to evaluate the patient. Her pretransfusion hemoglobin and hematocrit were 6.4 and 19.7 respectively. Post the second unit she was 11 and 32. An hour later she was 12 and 36. These numbers are incongruent with her pretransfusion hematocrit and 2 units of blood. I decided to proceed with upper and lower endoscopy. This was discussed with the patient. Objective : Data - Labs CBC and BMP: 09/21/18 07:06 09/21/18 05:35 - Vital Signs Vital Signs and I&O: Vital Signs - Last Taken Temperature 98.5 F 09/21/18 06:25 Pulse Rate 66 09/21/18 06:25 Respiratory Rate 16 09/21/18 06:25 Blood Pressure 169/66 09/21/18 06:25 Pulse Ox 95 09/21/18 06:25 Intake and Output (24hr x 4 totals) 09/19/18 09/20/18 09/21/18 09/22/18 05:59 05:59 05:59 05:59 Intake Total 2948 / 2948 Output Total 1450 / 1450 Balance 1498 / 1498 Objective : Exam - General General Appearance: No Acute Distress, Cooperative - Respiratory Respiratory Exam: Clear to Auscultation - Bilaterally, Breathing Non Labored - Cardiovascular Cardiovascular Exam: RRR, No Murmur - GI/Abdominal GI/Abdominal Exam: Normal Bowel Sounds, Non Tender, Non Distended, Soft Assessment and Plan - Patient Problems (1) Acute lower GI bleeding Current Visit: Yes Status: Acute Priority: High Onset Date: 09/20/18 Comment: Proceed with upper and lower endoscopy.The procedure has been discussed with the patient in complete yet simple terms including benefits, risks, and alternatives. All questions have been answered. Informed consent has been obtained. Code(s): Burke92.2 - Gastrointestinal hemorrhage, unspecified
[2018-09-21] MEDS ORDERED: Ropinirole Tab 1 MG TAB PO SCH (09:00)
--- NOTE | 2018-09-21 09:16 | CRNA.PROGR ---
Post Anesthesia Phase II - Post Anesthesia Phase II Patient Stable and Discharged To: Phase II Care Assumed By Surgeon: Stef Young MD Temperature: 98.5 F Pulse Rate: 62 Respiratory Rate: 16 Blood Pressure: 166/63 Pulse Ox: 95 Total Dave Score at Discharge: 10 Post Anesthesia Discharge Criteria Met: Yes
--- NOTE | 2018-09-21 09:16 | CRNA.PROGR ---
Anesthesia Time - Procedure/Recovery Time Start Date: 09/21/18 End Date: 09/21/18 Anesthesia : Time In: 07:35 Anesthesia : Time Out: 08:46 Anesthesia : Total Time: 71 - Total Anesthesia Time Total Anesthesia Time (minutes): 71 - Other Weight: 68.946 kg Height: 5 ft 7 in Body Mass Index (BMI): 23.8 Physical Status: P3 Anesthesia Type: MAC (EGD/Colonoscopy, inpt, GI Bleed)
--- NOTE | 2018-09-21 09:43 | GEN.OPNOTE ---
EGD / Colonoscopy Report Surgery Date: 09/21/18 Preoperative Diagnosis: GI bleed-presumed lower. Postoperative Diagnosis: Same. Diverticulosis. No active bleeding. Procedure: #1 esophagogastroduodenoscopy. #2 incomplete colonoscopy past the splenic flexure. Surgeon: Stef Young MD Anesthesia Provider: Claus De Leon CRNA Anesthesia Type: MAC Indications: See note from earlier today. Patient presented yesterday having had 4 bloody bowel movements. She did not have any more until four this morning. She had one at 4 AM and 1 at 6 AM. She was taken for endoscopy for evaluation. EGD Findings: Esophagus: [Normal] GE Junction : [Normal] Fundus : [Normal] Body : [Normal] Prepyloric : [Normal] Small Intestine : [Normal] A lubricated flexible upper endoscope was inserted and passed through the esophagus and stomach into the duodenum. The entire endoscopy was normal. There was no blood anywhere in the upper GI tract. The scope was withdrawn completing the procedure. Colonsocopy Findings: Prep : [No prep done.] Cecum : [Not visualized.] Ascending : [The light was seen in the ascending colon. There was old dark clots on the wall of the bowel. No evidence of active bleeding.] Transverse : [No active bleeding.] Sigmoid : [Extensive diverticulosis. No active bleeding.] Rectum : [No active bleeding.] Digital Rectal Exam : [No gross perianal pathology.] A lubricated flexible colonoscope was inserted and passed to the ascending colon. The light was seen in the ascending colon. It was very difficult to visualize. A suction securities research analyst was used to clear old blood. I could not procee d further than the mid ascending colon. Irrigation and suctioning were used to clear the blood as possible. The scope was slowly withdrawn. There is blood and clot. There was no evidence of active bleeding. There is no fresh blood. There is extensive sigmoid diverticulosis. The scope was withdrawn completing the procedure. The patient tolerated all aspects of the procedure well without complication. She was taken back to the intensive care unit in stable condition. I discussed the findings with hospitalist. Would recommend keeping the patient nothing by mouth. Need to check a hemoglobin and hematocrit every 4 hours. Keep 2 units of blood available at all times. Continue to monitor for stability and transfuse as necessary. For evidence of active bleeding would do a tagged red cell scan if possible. If we get up to 6 units of blood and we can not keep ahead we'll have to consider sigmoid colectomy. This has been discussed with the hospitalist as well as the patient. Endoscopy Procedures - Endoscopy Procedures Primary Endoscopy Procedure: 47095 : Colonoscopy Secondary Endoscopy Procedure: 76245 : EGD, Diagonstic
--- NOTE | 2018-09-21 09:57 | PDOC(PROG) ---
Interval History: Patient is back from EGD, colonoscopy old blood was found no active bleeding patient is stable has no complaints blood pressure stable Objective : Data - Labs CBC and BMP: 09/21/18 07:06 09/21/18 05:35 Objective : Exam - General General Appearance: Cooperative - Respiratory Respiratory Exam: Clear to Auscultation - Bilaterally, Breathing Non Labored, Normal To Percussion, Normal to Percussion and Palpation - Cardiovascular Cardiovascular Exam: RRR, No Murmur, No Clicks, No Gallops, No Rubs, PMI Non- Displaced - GI/Abdominal GI/Abdominal Exam: Normal Bowel Sounds, Non Tender, Non Distended, Soft, No Masses, No Hepatomegaly, No Splenomegaly, No Organomegaly - Extremities Extremities Exam: No Clubbing Present, No Edema Present, No Cyanosis Present Assessment and Plan - Patient Problems (1) GI bleed Current Visit: Yes Status: Acute Comment: Patient had EGD colonoscopy was transfused 2 units of packed red blood cells. No active bleeding found I believe this is secondary to Plavix which is on hold we will continue to observe and monitor patient in regards to her blood pressure and hemoglobin. Code(s): K92.2 - Gastrointestinal hemorrhage, unspecified (2) Anemia Current Visit: Yes Status: Acute Code(s): D64.9 - Anemia, unspecified (3) Acute kidney failure Current Visit: No Status: Acute Comment: This is improving from 1.4-1.3 continue hydration and follow labs Code(s): N17.9 - Acute kidney failure, unspecified Qualifiers: Acute renal failure type: unspecified Qualified Code(s): N17.9 - Acute kidney failure, unspecified
[2018-09-21] MEDS: CARVEDILOL 12.5 MG TABLET PO SCH ×2 (10:48→20:41)
[2018-09-21] MEDS: Potassium Chloride Tab 10 MEQ TAB PO SCH (10:49)
[2018-09-21] MEDS: ISOSORBIDE MONONITRATE 30 MG SR 24H TABLET PO SCH (10:49)
[2018-09-21] MEDS: PANTOPRAZOLE IV 40 MG VIAL IVP SCH ×2 (10:49→20:40)
[2018-09-21 14:38] LABS: Hematocrit [HCT] 27.1 % (37.0-47.0); Hemoglobin [HGB] 9.2 g/dL (12.0-16.0); MEAN CORPUSCULAR HEMOGLOBIN 30.9 PG (27-31); MEAN CORPUSCULAR HGB CONC 33.9 g/dL (33-37); MEAN CORPUSCULAR VOLUME 90.9 FL (81-99); RED BLOOD COUNT 2.98 10^6/uL (4.20-5.40)
[2018-09-21 19:57] LABS: Hematocrit [HCT] 21.2 % (37.0-47.0); Hemoglobin [HGB] 7.3 g/dL (12.0-16.0); MEAN CORPUSCULAR HEMOGLOBIN 31.5 PG (27-31); MEAN CORPUSCULAR HGB CONC 34.4 g/dL (33-37); MEAN CORPUSCULAR VOLUME 91.4 FL (81-99); MEAN PLATELET VOLUME 10.9 FL (7.4-12.2); RED BLOOD COUNT 2.32 10^6/uL (4.20-5.40)
[2018-09-21] MEDS ORDERED: ACETAMINOPHEN 325 MG TABLET PO ONE (20:13)
[2018-09-21] MEDS ORDERED: Sodium Chloride 0.9% 500 ML PRIMARY IV ONE (20:13)
[2018-09-21] MEDS ORDERED: FUROSEMIDE 10 MG/1 ML - 2 ML VIAL IVP ONE (20:13)
[2018-09-21] MEDS ORDERED: methylPREDNISolone 125 MG/2 ML VIAL IVP ONE (20:15)
[2018-09-21] MEDS: ATORVASTATIN 40 MG TABLET PO SCH (20:41)
[2018-09-21] MEDS: Ropinirole Tab 1 MG TAB PO SCH (20:41)
[2018-09-21] MEDS ORDERED: ACETAMINOPHEN 500 MG TABLET PO ONE (20:51)
[2018-09-22] MEDS: Lactated Ringers 1,000 ML PRIMARY IV SCH ×3 (02:45→10:36)
[2018-09-22 02:55] LABS: Hematocrit [HCT] 30.6 % (37.0-47.0); Hemoglobin [HGB] 10.8 g/dL (12.0-16.0); MEAN CORPUSCULAR HEMOGLOBIN 31.3 PG (27-31); MEAN CORPUSCULAR HGB CONC 35.3 g/dL (33-37); MEAN CORPUSCULAR VOLUME 88.7 FL (81-99); MEAN PLATELET VOLUME 11.1 FL (7.4-12.2); RED BLOOD COUNT 3.45 10^6/uL (4.20-5.40)
[2018-09-22] MEDS: LEVOTHYROXINE 100 MCG TABLET PO SCH (05:27)
[2018-09-22 05:38] LABS: Hematocrit [HCT] 30.4 % (37.0-47.0); Hemoglobin [HGB] 10.7 g/dL (12.0-16.0); MEAN CORPUSCULAR HGB CONC 35.2 g/dL (33-37); MEAN CORPUSCULAR VOLUME 88.1 FL (81-99); MEAN PLATELET VOLUME 11.1 FL (7.4-12.2); RED BLOOD COUNT 3.45 10^6/uL (4.20-5.40)
[2018-09-22 05:47] LABS: BLOOD UREA NITROGEN 47 mg/dL (7-22); BUN/CREATININE RATIO 31.33 (6-20); SERUM ALBUMIN 2.6 g/dL (3.5-4.8)
[2018-09-22 06:23] LABS: BAND NEUTROPHILS % 0 % (0-10); BASOPHILS % (MANUAL) 0 % (0-1); EOSINOPHILS % (MANUAL) 0 % (0-8); MONOCYTES % (MANUAL) 0 % (0-12); NEUTROPHILS % (MANUAL) 95 % (50-80); PLATELET MORPHOLOGY COMMENT NORMAL MORPHOLOGY (NORM); RBC MORPHOLOGY COMMENT NORMAL MORPHOLOGY (NORM); WBC MORPHOLOGY COMMENT NORMAL MORPHOLOGY (NORM)
[2018-09-22] MEDS: CARVEDILOL 12.5 MG TABLET PO SCH ×2 (10:35→20:16)
[2018-09-22] MEDS: PANTOPRAZOLE IV 40 MG VIAL IVP SCH (10:35)
[2018-09-22] MEDS: Potassium Chloride Tab 10 MEQ TAB PO SCH (10:35)
[2018-09-22] MEDS: ISOSORBIDE MONONITRATE 30 MG SR 24H TABLET PO SCH (10:35)
--- NOTE | 2018-09-22 13:49 | PDOC(PROG) ---
Date of Service: 09/22/18 Time of Service: 13:47 Interval History: Patient states that she is feeling better. She states that she has had a bloody stool. Dr. Tavarez tells me she passed some maroon stool earlier today. Patient received 2 units of blood yesterday evening. Hemoglobin is 10.7 crit of 30.4 Objective : Data - Labs CBC and BMP: 09/22/18 05:05 09/22/18 05:05 - Vital Signs Vital Signs and I&O: Vital Signs - Last Taken Temperature 98.4 F 09/22/18 11:29 Pulse Rate 59 L 09/22/18 11:29 Respiratory Rate 18 09/22/18 11:29 Blood Pressure 154/67 09/22/18 11:29 Pulse Ox 95 09/22/18 11:29 Intake and Output (24hr x 4 totals) 09/20/18 09/21/18 09/22/18 09/23/18 05:59 05:59 05:59 05:59 Intake Total 2948 / 2948 5099 / 5099 1401 / 1401 Output Total 1450 / 1450 1979 / 1979 Balance 1498 / 1498 3119 / 3119 1401 / 1401 Objective : Exam - General General Appearance: No Acute Distress, Cooperative - GI/Abdominal GI/Abdominal Exam: Normal Bowel Sounds, Non Tender, Non Distended Assessment and Plan - Patient Problems (1) Acute lower GI bleeding Current Visit: Yes Status: Acute Priority: High Onset Date: 09/20/18 Code(s): K92.2 - Gastrointestinal hemorrhage, unspecified - Assessment / Plan Additional Assessment/Plan Details: At this point patient is hemodynamically stable. We'll continue to monitor closely. No surgery indicated at this time
[2018-09-22 14:10] LABS: Hematocrit [HCT] 29.4 % (37.0-47.0); Hemoglobin [HGB] 10.2 g/dL (12.0-16.0); MEAN CORPUSCULAR HEMOGLOBIN 30.6 PG (27-31); MEAN CORPUSCULAR HGB CONC 34.7 g/dL (33-37); MEAN CORPUSCULAR VOLUME 88.3 FL (81-99); MEAN PLATELET VOLUME 11.1 FL (7.4-12.2); RED BLOOD COUNT 3.33 10^6/uL (4.20-5.40)
--- NOTE | 2018-09-22 17:39 | PDOC(PROG) ---
Date of Service: 09/22/18 Time of Service: 17:33 Interval History: patient seen, evaluated earlier today. had maroon colored bowel movements last night. no chest pain, abdominal pain, nausea, vomiting, or shortness of breath. had two units PRBC yesterday. Objective : Data - Labs CBC and BMP: 09/22/18 14:00 09/22/18 05:05 Objective : Exam - General General Appearance: No Acute Distress, Cooperative Additional General Exam Details: Vital Signs - Last Taken Temperature 98.4 F 09/22/18 16:00 Pulse Rate 56 L 09/22/18 16:59 Respiratory Rate 18 09/22/18 16:59 Blood Pressure 171/73 09/22/18 16:59 Pulse Ox 96 09/22/18 16:59 - Eye Eye Exam: No Scleral Icterus - ENT ENT Exam: Mucous Membranes Moist - Neck Neck Exam: JVP is not Raised - Respiratory Respiratory Exam: Clear to Auscultation - Bilaterally, Breathing Non Labored - Cardiovascular Cardiovascular Exam: No Murmur, No Clicks, No Gallops, No Rubs, Bradycardia, No JVD - GI/Abdominal GI/Abdominal Exam: Normal Bowel Sounds, Non Tender, Non Distended, Soft - Extremities Extremities Exam: No Clubbing Present, No Edema Present, No Cyanosis Present - Neurological Neurological Exam: Alert, Oriented x 3, No Facial Droop, Speech Intact / Clear, Moves All Extremities Equally Assessment and Plan - Patient Problems (1) GI bleed Current Visit: Yes Status: Acute Code(s): K92.2 - Gastrointestinal hemorrhage, unspecified Qualifiers: GI bleed type/associated pathology: diverticulitis Qualified Code(s): K57.93 - Diverticulitis of intestine, part unspecified, without perforation or abscess with bleeding (2) Acute kidney failure Current Visit: Yes Status: Acute Code(s): N17.9 - Acute kidney failure, unspecified Qualifiers: Acute renal failure type: unspecified Qualified Code(s): N17.9 - Acute kidney failure, unspecified (3) Anemia Current Visit: Yes Status: Acute Code(s): D64.9 - Anemia, unspecified Qualifiers: Anemia type: unspecified type Qualified Code(s): D64.9 - Anemia, unspecified (4) CAD (coronary artery disease) Current Visit: Yes Status: Acute Code(s): I25.10 - Atherosclerotic heart disease of [place] coronary artery without angina pectoris Qualifiers: Coronary Disease-Associated Artery/Lesion type: [place] artery [place] vs. transplanted heart: [place] heart Associated angina: without angina Qualified Code(s): I25.10 - Atherosclerotic heart disease of [place] coronary artery without angina pectoris (5) Hypercholesterolemia Current Visit: Yes Status: Chronic Code(s): E78.0 - Pure hypercholesterolemi a (6) Hypothyroidism Current Visit: Yes Status: Acute Code(s): E03.9 - Hypothyroidism, unspecified Qualifiers: Hypothyroidism type: unspecified Qualified Code(s): E03.9 - Hypothyroidism, unspecified (7) Right renal artery stenosis Current Visit: No Status: Acute Code(s): I70.1 - Atherosclerosis of renal artery - Assessment / Plan Additional Assessment/Plan Details: will check a CBC this evening continue to hold plavix and aspirin. could be bleeding on plavix? will be interested to see what happens when plavix has been off for 7 days CBC in AM transfer out of ICU with EGD and colonoscopy results given CAD, would like to try to keep hemoglobin a bit higher than normal. hold ACEI check labs in AM, renal function in AM hold IV fluids, hypertensive currently, don't want to dilute H and H. d/w surgery
[2018-09-22] MEDS ORDERED: NITROGLYCERIN 0.4 MG SL TAB (BOTTLE OF 3) SL PRN (17:44)
[2018-09-22] MEDS ORDERED: LIDOCAINE W/ SODIUM BICARB 0.5 ML SYR SUBD PRN (17:44)
[2018-09-22] MEDS ORDERED: LIDOCAINE HCL 2 % 10 ML JELLY URO-JECT TOPICAL PRN (17:44)
[2018-09-22] MEDS ORDERED: ONDANSETRON 4 MG/2 ML VIAL IV PRN (17:44)
[2018-09-22 17:58] LABS: Hemoglobin [HGB] 10.4 g/dL (12.0-16.0); MEAN CORPUSCULAR HEMOGLOBIN 30.6 PG (27-31); MEAN CORPUSCULAR HGB CONC 34.7 g/dL (33-37); MEAN CORPUSCULAR VOLUME 88.2 FL (81-99); MEAN PLATELET VOLUME 10.7 FL (7.4-12.2); RED BLOOD COUNT 3.4 10^6/uL (4.20-5.40)
[2018-09-22] MEDS: Ropinirole Tab 1 MG TAB PO SCH (20:15)
[2018-09-22] MEDS: ATORVASTATIN 40 MG TABLET PO SCH (20:16)
[2018-09-23 04:46] LABS: Hematocrit [HCT] 27.1 % (37.0-47.0); Hemoglobin [HGB] 9.2 g/dL (12.0-16.0); MEAN CORPUSCULAR HEMOGLOBIN 30.9 PG (27-31); MEAN CORPUSCULAR HGB CONC 33.9 g/dL (33-37); MEAN CORPUSCULAR VOLUME 90.9 FL (81-99); MEAN PLATELET VOLUME 10.8 FL (7.4-12.2); RED BLOOD COUNT 2.98 10^6/uL (4.20-5.40)
[2018-09-23] MEDS: LEVOTHYROXINE 100 MCG TABLET PO SCH (04:48)
[2018-09-23] MEDS: CARVEDILOL 12.5 MG TABLET PO SCH ×2 (08:04→20:32)
[2018-09-23] MEDS: Potassium Chloride Tab 10 MEQ TAB PO SCH (08:04)
[2018-09-23] MEDS: ISOSORBIDE MONONITRATE 30 MG SR 24H TABLET PO SCH (08:04)
--- NOTE | 2018-09-23 14:28 | PDOC(PROG) ---
Date of Service: 09/23/18 Time of Service: 14:25 Interval History: Doing very well. Hungry. Just had a very small smear of dark black stool. Less than 5 mL. No bowel movements documented late Wednesday night or early morning. Denies abdominal pain. Does not feel like she has to have a bowel movement. Objective : Data - Labs CBC and BMP: 09/23/18 04:20 09/22/18 05:05 - Vital Signs Vital Signs and I&O: Vital Signs - Last Taken Temperature 97.1 F 09/23/18 12:18 Pulse Rate 50 L 09/23/18 12:18 Respiratory Rate 16 09/23/18 12:18 Blood Pressure 174/63 09/23/18 12:18 Pulse Ox 98 09/23/18 12:18 Intake and Output (24hr x 4 totals) 09/21/18 09/22/18 09/23/18 09/24/18 05:59 05:59 05:59 05:59 Intake Total 2948 / 2948 5099 / 5099 2721 / 2721 480 / 480 Output Total 1450 / 1450 1979 / 1979 1150 / 1150 700 / 700 Balance 1498 / 1498 3119 / 3119 1571 / 1571 -220 / -220 Objective : Exam - General General Appearance: No Acute Distress, Cooperative - Respiratory Respiratory Exam: Clear to Auscultation - Bilaterally, Breathing Non Labored - Cardiovascular Cardiovascular Exam: RRR, No Murmur - GI/Abdominal GI/Abdominal Exam: Normal Bowel Sounds, Non Tender, Non Distended, Soft - Rectal Rectal Exam: Deferred - Neurological Neurological Exam: Alert, Oriented x 3 - Psychiatric Psychiatric Exam: Normal Affect, Normal Mood Assessment and Plan - Patient Problems (1) Acute lower GI bleeding Current Visit: Yes Status: Acute Priority: Medium Onset Date: 09/20/18 Comment: No further blood per rectum of significant quantity. Will advance to a low-residue diet. If her hemoglobin is stable in the morning she could probably be discharged home for outpatient follow-up. Would want to see her in the office in 2-3 weeks and schedule a colonoscopy. Discussed with the patient. I will discuss it with the hospitalist. Code(s): K92.2 - Gastrointestinal hemorrhage, unspecified
[2018-09-23 14:42] LABS: Hematocrit [HCT] 28.8 % (37.0-47.0); Hemoglobin [HGB] 9.7 g/dL (12.0-16.0); MEAN CORPUSCULAR HGB CONC 33.7 g/dL (33-37); MEAN PLATELET VOLUME 10.6 FL (7.4-12.2); RED BLOOD COUNT 3.13 10^6/uL (4.20-5.40)
[2018-09-23 14:52] LABS: BLOOD UREA NITROGEN 36 mg/dL (7-22)
--- NOTE | 2018-09-23 16:50 | PDOC(PROG) ---
Date of Service: 09/23/18 Time of Service: 16:47 Interval History: Patient seen and evaluated earlier today. Discussed with surgery. She reported to me no bowel movements. No abdominal pain. No nausea or vo miting. No chest pain. No shortness of breath Objective : Data - Labs CBC and BMP: 09/23/18 14:41 09/23/18 14:41 Objective : Exam - General General Appearance: No Acute Distress, Cooperative Additional General Exam Details: Vital Signs - Last Taken Temperature 97.1 F 09/23/18 12:18 Pulse Rate 51 L 09/23/18 15:00 Respiratory Rate 16 09/23/18 12:18 Blood Pressure 174/63 09/23/18 12:18 Pulse Ox 98 09/23/18 12:18 - Eye Eye Exam: No Scleral Icterus - ENT ENT Exam: Mucous Membranes Moist - Neck Neck Exam: JVP is not Raised - Respiratory Respiratory Exam: Clear to Auscultation - Bilaterally, Breathing Non Labored - Cardiovascular Cardiovascular Exam: RRR, No Murmur, No Clicks, No Gallops, No Rubs, No JVD - GI/Abdominal GI/Abdominal Exam: Normal Bowel Sounds, Non Tender, Non Distended, Soft - Extremities Extremities Exam: No Clubbing Present, No Edema Present, No Cyanosis Present - Neurological Neurological Exam: Alert, Oriented x 3, No Facial Droop, Speech Intact / Clear, Moves All Extremities Equally Assessment and Plan - Patient Problems (1) GI bleed Current Visit: Yes Status: Acute Code(s): K92.2 - Gastrointestinal hemorr christian, unspecified Qualifiers: GI bleed type/associated pathology: diverticulitis Qualified Code(s): K57.93 - Diverticulitis of intestine, part unspecified, without perforation or abscess with bleeding (2) Acute kidney failure Current Visit: Yes Status: Acute Code(s): N17.9 - Acute kidney failure, unspecified Qualifiers: Acute renal failure type: unspecified Qualified Code(s): N17.9 - Acute kidney failure, unspecified (3) Anemia Current Visit: Yes Status: Acute Code(s): D64.9 - Anemia, unspecified Qualifiers: Anemia type: unspecified type Qualified Code(s): D64.9 - Anemia, unspecified (4) CAD (coronary artery disease) Current Visit: Yes Status: Acute Code(s): I25.10 - Atherosclerotic heart disease of [place] coronary artery without angina pectoris Qualifiers: Coronary Disease-Associated Artery/Lesion type: [place] artery [place] vs. transplanted heart: [place] heart Associated angina: without angina Qualified Code(s): I25.10 - Atherosclerotic heart disease of [place] coronary artery without angina pectoris (5) Hypercholesterolemia Current Visit: Yes Status: Chronic Code(s): E78.0 - Pure hypercholesterolemia (6) Hypothyroidism Current Visit: Yes Status: Acute Code(s): E03.9 - Hypothyroidism, unspecified Qualifiers: Hypothyroidism type: unspecified Qualified Code(s): E03.9 - Hypothyroidism, unspecified (7) Right renal artery stenosis Current Visit: No Status: Acute Code(s): I70.1 - Atherosclerosis of renal artery - Assessment / Plan Additional Assessment/Plan Details: Very good to see that hemoglobin is been consistently in the nines today. I think it's consistently in the nines tens range tomorrow, the patient discharge. Surgery agreed. The patient could have outpatient follow-up and arrange a colonoscopy at a later date. I will resume chlorthalidone and lisinopril. Discontinue Plavix indefinitely. There is no indication for now she is over a year from her cardiac stent. She has not had any history of stroke or TIAs that would indicate Plavix The patient will need to resume her aspirin but I would like to hold on that for the next few days. There is evidence however that if aspirin has not started within 10 days of a GI bleed event, there could be increased risk from a heart perspective so we will resume it. CBC in a.m. Diet advanced per surgery. We will discontinue Macias catheter.
[2018-09-23] MEDS: CHLORTHALIDONE 50 MG TABLET PO SCH (17:21)
[2018-09-23] MEDS: Ropinirole Tab 1 MG TAB PO SCH (20:31)
[2018-09-23] MEDS: LISINOPRIL 20 MG TABLET PO SCH (20:32)
[2018-09-23] MEDS: ATORVASTATIN 40 MG TABLET PO SCH (20:32)
[2018-09-24 05:23] LABS: BASOPHILS # (AUTO) 0.01 10*3/UL; BASOPHILS % (AUTO) 0.1 % (0-1); EOSINOPHILS # (AUTO) 0.15 10*3/UL; EOSINOPHILS % (AUTO) 1.9 % (0-8); Hematocrit [HCT] 26.7 % (37.0-47.0); Hemoglobin [HGB] 8.8 g/dL (12.0-16.0); MEAN CORPUSCULAR HEMOGLOBIN 30.6 PG (27-31); MEAN CORPUSCULAR VOLUME 92.7 FL (81-99); MEAN PLATELET VOLUME 10.6 FL (7.4-12.2); MONOCYTES # (AUTO) 0.43 10*3/UL (0.3-0.8); MONOCYTES % (AUTO) 5.5 % (5-15); NEUTROPHILS # (AUTO) 4.39 10*3/UL; NEUTROPHILS % (AUTO) 56.3 % (50-80); RED BLOOD COUNT 2.88 10^6/uL (4.20-5.40)
[2018-09-24] MEDS: LEVOTHYROXINE 100 MCG TABLET PO SCH (05:24)
[2018-09-24 05:32] LABS: PLATELET MORPHOLOGY COMMENT NORMAL MORPHOLOGY (NORM); RBC MORPHOLOGY COMMENT NORMAL MORPHOLOGY (NORM); WBC MORPHOLOGY COMMENT NORMAL MORPHOLOGY (NORM)
[2018-09-24 05:40] LABS: BLOOD UREA NITROGEN 32 mg/dL (7-22); BUN/CREATININE RATIO 26.66 (6-20); SERUM ALBUMIN 2.5 g/dL (3.5-4.8)
[2018-09-24] MEDS: ISOSORBIDE MONONITRATE 30 MG SR 24H TABLET PO SCH (09:05)
[2018-09-24] MEDS: CHLORTHALIDONE 50 MG TABLET PO SCH (09:05)
[2018-09-24] MEDS: Potassium Chloride Tab 10 MEQ TAB PO SCH (09:05)
[2018-09-24] MEDS: CARVEDILOL 12.5 MG TABLET PO SCH ×2 (09:05→20:53)
[2018-09-24] MEDS: LISINOPRIL 20 MG TABLET PO SCH ×2 (09:06→20:54)
[2018-09-24] MEDS ORDERED: Sodium Chloride 0.9% 500 ML PRIMARY IV ONE (10:10)
--- NOTE | 2018-09-24 10:45 | PDOC(PROG) ---
Date of Service: 09/24/18 Time of Service: 10:29 Interval History: No chest pain, no shortness of breath. Had 2 maroonish-colored/dark colored bowel movements overnight. No abdominal pain. No nausea and no vomiting. Objective : Data - Labs CBC and BMP: 09/24/18 04:30 09/24/18 04:30 Objective : Exam - General General Appearance: No Acute Distress, Cooperative Additional General Exam Details: Vital Signs - Last Taken Temperature 97.1 F 09/24/18 07:13 Pulse Rate 49 L 09/24/18 07:13 Respiratory Rate 25 H 09/24/18 07:13 Blood Pressure 179/66 09/24/18 07:13 Pulse Ox 95 09/24/18 07:13 - Eye Eye Exam: No Scleral Icterus - ENT ENT Exam: Mucous Membranes Moist - Neck Neck Exam: JVP is not Raised - Respiratory Respiratory Exam: Clear to Auscultation - Bilaterally, Breathing Non Labored - Cardiovascular Cardiovascular Exam: RRR, No Murmur, No Clicks, No Gallops, No Rubs, No JVD - GI/Abdominal GI/Abdominal Exam: Normal Bowel Sounds, Non Tender, Non Distended, Soft - Extremities Extremities Exam: No Clubbing Present, No Edema Present, No Cyanosis Present - Neurological Neurological Exam: Alert, Oriented x 3, No Facial Droop, Speech Intact / Clear, Moves All Extremities Equally Assessment and Plan - Patient Problems (1) GI bleed Current Visit: Yes Status: Acute Code(s): K92.2 - Gastrointestinal hemorrhage, unspecified Qualifiers: GI bleed type/associated pathology: diverticulitis Qualified Code(s): K57.93 - Diverticulitis of intestine, part unspecified, without perforation or abscess with bleeding (2) Anemia Current Visit: Yes Status: Acute Code(s): D64.9 - Anemia, unspecified Qualifiers: Anemia type: unspecified type Qualified Code(s): D64.9 - Anemia, unspecified (3) Acute kidney failure Current Visit: Yes Status: Acute Code(s): N17.9 - Acute kidney failure, unspecified Qualifiers: Acute renal failure type: unspecified Qualified Code(s): N17.9 - Acute kidney failure, unspecified (4) CAD (coronary artery disease) Current Visit: Yes Status: Acute Code(s): I25.10 - Atherosclerotic heart disease of [place] coronary artery without angina pectoris Qualifiers: Coronary Disease-Associated Artery/Lesion type: [place] artery [place] vs. transplanted heart: [place] heart Associated angina: without angina Qualified Code(s): I25.10 - Atherosclerotic heart disease of [place] coronary artery without angina pectoris (5) Hypercholesterolemia Current Visit: Yes Status: Chronic Code(s): E78.0 - Pure hypercholesterolemia (6) Hypothyroidism Current Visit: Yes Status: Acute Code(s): E03.9 - Hypothyroidism, unspecified Qualifiers: Hypothyroidism type: unspecified Qualified Code(s): E03.9 - Hypothyroidism, unspecified (7) Right renal artery stenosis Current Visit: No Status: Acute Code(s): I70.1 - Atherosclerosis of renal artery - Assessment / Plan Additional Assessment/Plan Details: Still not bleeding briskly enough to proceed with the tagged red blood cell scan. I think this is all old blood. She is hemodynamically okay with blood pressures and heart rates. She has known coronary artery disease with a history of stent placement, hemoglobin is now down to 8.8 and she lives over 30 minutes away from the hospital, I think it would be reasonable to do 2 units of blood, check a CBC tomorrow, and probably discharged tomorrow with close clinic follow-up. She c ould return if she has bright red blood in her stool. She understands those instructions. She agrees with the plan. Spoke with surgery about the plan, and we both agree that this is the best idea for this patient given her history and where she lives. I resume blood pressure medications yesterday. Continue off of Plavix indefinitely. Patient will need to resume her aspirin in about a week. Eventually, hopefully an outpatient colonoscopy.
[2018-09-24] MEDS ORDERED: HYDRALAZINE 20 MG/1 ML IVP ONE ×2 (17:24→19:02)
[2018-09-24] MEDS: Ropinirole Tab 1 MG TAB PO SCH (20:54)
[2018-09-24] MEDS: ATORVASTATIN 40 MG TABLET PO SCH (20:54)
[2018-09-24 21:33] LABS: Hematocrit [HCT] 34.2 % (37.0-47.0); MEAN CORPUSCULAR HGB CONC 35.1 g/dL (33-37); MEAN CORPUSCULAR VOLUME 88.4 FL (81-99); MEAN PLATELET VOLUME 10.4 FL (7.4-12.2); RED BLOOD COUNT 3.87 10^6/uL (4.20-5.40)
[2018-09-25 04:21] LABS: Hematocrit [HCT] 36.3 % (37.0-47.0); Hemoglobin [HGB] 12.8 g/dL (12.0-16.0); MEAN CORPUSCULAR HGB CONC 35.3 g/dL (33-37); MEAN CORPUSCULAR VOLUME 87.9 FL (81-99); MEAN PLATELET VOLUME 10.4 FL (7.4-12.2); RED BLOOD COUNT 4.13 10^6/uL (4.20-5.40)
[2018-09-25] MEDS ORDERED: HYDRALAZINE 20 MG/1 ML ONE (04:33)
[2018-09-25] MEDS: LEVOTHYROXINE 100 MCG TABLET PO SCH (04:34)
[2018-09-25 08:15] VITALS: TEMP 97.3
[2018-09-25] MEDS ORDERED: HYDRALAZINE 20 MG/1 ML IVP ONE (08:26)
[2018-09-25] MEDS: CARVEDILOL 12.5 MG TABLET PO SCH (08:39)
[2018-09-25] MEDS: ISOSORBIDE MONONITRATE 30 MG SR 24H TABLET PO SCH (08:39)
[2018-09-25] MEDS: LISINOPRIL 20 MG TABLET PO SCH (08:39)
[2018-09-25] MEDS: Potassium Chloride Tab 10 MEQ TAB PO SCH (08:39)
[2018-09-25] MEDS: CHLORTHALIDONE 50 MG TABLET PO SCH (08:39)
--- NOTE | 2018-09-25 12:00 | DCSUMMARY ---
Hospitalization Summary Admit Date: 09/20/2018 Discharge Date: 09/25/18 Primary Diagnosis:: GI bleed, presumed diverticular Hospital Course: This is a very pleasant 9-year-old female who was admitted on 09/20/2018 with bloody bowel movements. Surgery consult was obtained, the patient had an EGD and a colonoscopy and she had some old blood in her colon. It was not a complete colonoscopy. The patient required a total of 6 units of blood transfusions through the hos pital stay. She did show signs of slowing down in terms of her bleeding by the time of discharge. Her hemoglobin after her last blood transfusion was in the 12's range and her hemoglobin following day was also to be in the 12's range. The patient did not have any nausea or vomiting. She did not have any abdominal pain. The plan is to recheck a CBC later this week in the clinic, and have the patient meet with surgery as an outpatient to consider a full prep colonoscopy. The patient did have episodes of hypertension that was accelerated and required some IV doses of hydralazine. I think this is probably related to volume in the setting of blood transfusions. At discharge her systolic blood pressure was 124. On the date of discharge, patient did not have any chest pain, shortness breath, nausea or vomiting. She had one bowel movement last night that was black. Her progression was bright red blood bowel movements to maroon colored bowel movements to black and tarry. Assessment and Plan: 1. As per discharge assessments noted 2. Disposition: Patient is discharged home. 3. Condition on discharge, stable and improved. 4. Diet: regular diet 5. Activities: resume normal activities 6. Follow-Up: 1. See Irving Hogue in the clinic on Wednesday for repeat CBC and recheck of GI bleed symptoms as well as blood pressure 2. See Dr. Young in 3-4 weeks for recheck on this bleed and consider a full prep colonoscopy. 7. Medications at the Time of Discharge: Home Medications Medication Instructions Recorded Confirmed Type vit C 250 mg-E 200 unit-zinc 40 250 cap PO BID cap 03/02/17 09/20/18 History mg-copper 1 [id number] capsule aspirin 81 mg chewable tablet 81 mg PO QDAY tab 07/22/17 09/20/18 History nitroglycerin 0.4 mg sublingual 0.4 mg SL Q5-15M PRN 07/22/17 09/20/18 History tablet omega-3 fatty acids-fish oil 360 1 cap PO QDAY cap 07/22/17 09/20/18 History mg-1,200 mg capsule atorvastatin 40 mg tablet 40 mg PO QHS #90 tab 05/16/18 09/20/18 Rx carvedilol 12.5 mg tablet 12.5 mg PO BID #180 tab 05/16/18 09/20/18 Rx isosorbide mononitrate ER 30 mg 30 mg PO QDAY #90 tab 05/16/18 09/20/18 Rx tablet,extended release 24 hr lisinopril 40 mg tablet 40 mg PO BID #180 tab 05/16/18 09/20/18 Rx potassium chloride ER 10 mEq 10 meq PO QDAY #30 tab 05/16/18 09/20/18 Rx tablet,extended release ropinirole 2 mg tablet 2 mg PO QDAY #90 tab 05/16/18 09/20/18 Rx chlorthalidone 25 mg tablet 25 mg PO QDAY #90 tab 06/15/18 09/20/18 Rx levothyroxine 100 mcg tablet 100 mcg PO QDAY #30 tab 06/30/18 09/20/18 Rx calcium carbonate 600 mg calcium 600 mg PO BID #180 tab 07/14/18 09/20/18 Rx (1,500 mg) tablet tizanidine 4 mg capsule 4 mg PO Q8H #60 cap 08/17/18 09/20/18 Rx 8. Time, care, counseling and coordination of care for this discharge is greater than 30 minutes. Exam - Vitals Vital Signs: Vital Signs Vital Signs - Last Taken Temperature 97.3 F 09/25/18 07:00 Pulse Rate 55 L 09/25/18 11:00 Respiratory Rate 13 09/25/18 07:00 Blood Pressure 208/68 09/25/18 07:00 Pulse Ox 97 09/25/18 07:00 Systolic blood pressure when I saw the patient was 124. Pulse Ox 97 Oxygen Flow Rate RA Oxygen Delivery Method Room Air Height 5 ft 7 in Weight 157 lb 6.4 oz - General General Appearance: No Acute Distress, Cooperative - Head Head Exam: Normal Inspection, Normocephalic, Atraumatic - Eye Eye Exam: POSITIVE: No Scleral Icterus - ENT ENT Exam: POSITIVE: Mucous Membranes Moist - Neck Neck Exam: JVP is not Raised - Respiratory Respiratory Exam: POSITIVE: Clear to Auscultation - Bilaterally, Breathing Non Labored - Cardiovascular Cardiovascular Exam: POSITIVE: RRR, No Murmur, No Clicks, No Gallops, No Rubs, No JVD - GI/Abdominal GI/Abdominal Exam: POSITIVE: Normal Bowel Sounds, Non Tender, Non Distended, Soft - Extremities Extremities Exam: POSITIVE: No Clubbing Present, No Edema Present, No Cyanosis Present - Neurological Neurological Exam: POSITIVE: Alert, Oriented x 3, No Facial Droop, Speech Intact / Clear, Moves All Extremities Equally Data Peritnent Studies: 09/20/18 09/20/18 09/20/18 08:25 09:15 13:45 WBC Hgb Hct Plt Count PT 10.0 INR 0.98 APTT 18.7 L Sodium Potassium Chloride Carbon Dioxide Anion Gap BUN Creatinine BUN/Creatinine Ratio Glucose Calculated Osmolality Lactic Acid Calcium Total Bilirubin AST ALT Alkaline Phosphatase Troponin I 0.014 Total Protein Albumin Globulin Albumin/Globulin Ratio 09/20/18 09/20/18 09/22/18 18:23 23:10 05:05 WBC Hgb 6.4 L* Hct 19.7 L* Plt Count PT INR APTT Sodium Potassium Chloride Carbon Dioxide Anion Gap BUN Creatinine BUN/Creatinine Ratio Glucose Calculated Osmolality Lactic Acid 1.0 Calcium Total Bilirubin AST ALT Alkaline Phosphatase Troponin I 0.015 Total Protein Albumin Globulin Albumin/Globulin Ratio 09/24/18 09/25/18 04:30 04:07 WBC 8.83 Hgb 12.8 Hct 36.3 L Plt Count 157 PT INR APTT Sodium 135 Potassium 3.9 Chloride 110 Carbon Dioxide 25 Anion Gap 0 L BUN 32 H Creatinine 1.2 BUN/Creatinine Ratio 26.66 H Glucose 80 Calculated Osmolality 285.0 Lactic Acid Calcium 7.9 L Total Bilirubin 0.5 AST 44 H ALT 25 D Alkaline Phosphatase 37 L Troponin I Total Protein 4.4 L Albumin 2.5 L Globulin 1.9 L Albumin/Globulin Ratio 1.30 Procedures: [address] [facility]. [facility] [place] [id number] PH: DD: [phone] FAX: [phone] ~DIAGNOSTIC IMAGING REPORT~ Patient: Anju Oliva : 1935 Sex: F Age: 83 Exam Name: CT Abdomen/Pelvis WO Contrast Exam Date: 09/20/18 Report # : [id number] CPT Code: 45496 EMR/MR #: [id number] Ordering: DRU GARDUNO Admiting: DARRYN RAI MD. Primary: Corby Livingston MD Attending: DARRYN RAI MD. Signed CT ABDOMEN SCAN WITHOUT IV CONTRAST, 09/20/2018 11:11 AM : Clinical History: Gastrointestinal bleeding. Previous Exam: 07/20/2017. IV Contrast: None administered. Oral Contrast: No oral contrast ordered. Rectal Contrast: No rectal contrast ordered. Lungs: No infiltrate or effusion. The patient either has a prosthetic mitral valve or mitral valve annulus is heavily calcified. The right and left ventricular chambers are visible on this noncontrast study. This would either indicate severe anemia or there is increased density in the myocardium due to a deposition process such as amyloidosis. Liver: Normal. Gallbladder: Status post cholecystectomy. Common bile duct measures 6 mm. Adrenal Glands: Normal. Spleen: Normal. Pancreas: Normal. Kidneys: Normal size, shape, position and contour. No hydronephrosis or hydroureter. No renal or ureteral calculi. A stent is present in the right renal artery. Lymph Nodes: Normal. Masses: None. Ascites: No ascites. Free Air: None. Spine: Normal lower thoracic and lumbar spine. Osteoporosis. READIN. Normal CT abdomen scan without IV contrast. 2. This patient either has severe anemia or has increased density of the myocardium secondary to deposition disease such as amyloidosis. CT PELVIS SCAN WITHOUT IV CONTRAST, 09/20/2018 11:11 AM: Clinical History: See above. Previous Exam: 07/20/2017. Contrast: None administered. Masses: No masses or enhancing lesions. Ascites: None. Free Air: None. Lymph Nodes: No adenopathy. Appendix: Not identified. No cecal or right lower quadrant inflammatory mass. Small Bowel: Normal small bowel, terminal ileum, and ileocecal valve. Colon: Normal. 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 Bladder: Normal. Hernias: None. Bony Pelvis: Normal sacrum and pelvic bones. Status post bilateral total hip replacements. READING: Normal CT scan of the pelvis without IV contrast. Osteoporosis. Dictated By: 09/20/181913 FERNY WOFLE MD. Signed By: 09/20/181940 FERNY WOLFE MD. Patient Problems - Patient Problem List (1) GI bleed Current Visit: Yes Status: Acute Code(s): K92.2 - Gastrointestinal hemorrhage, unspecified Qualifiers: GI bleed type/associated pathology: diverticulitis Qualified Code(s): K57.93 - Diverticulitis of intestine, part unspecified, without perforation or abscess with bleeding Category: Medical (2) Anemia Current Visit: Yes Status: Acute Code(s): D64.9 - Anemia, unspecified Qualifiers: Anemia type: unspecified type Qualified Code(s): D64.9 - Anemia, unspecified Category: Medical (3) CAD (coronary artery disease) Current Visit: Yes Status: Acute Code(s): I25.10 - Atherosclerotic heart disease of [place] coronary artery without angina pectoris Qualifiers: Coronary Disease-Associated Artery/Lesion type: [place] artery [place] vs. transplanted heart: [place] heart Associated angina: without angina Qualified Code(s): I25.10 - Atherosclerotic heart disease of [place] coronary artery without angina pectoris Category: Medical (4) Hypercholesterolemia Current Visit: Yes Status: Chronic Comment: Continue Lipitor Code(s): E78.0 - Pure hypercholesterolemia Category: Medical (5) Hypothyroidism Current Visit: Yes Status: Acute Comment: Continue usual medication Code(s): E03.9 - Hypothyroidism, unspecified Qualifiers: Hypothyroidism type: unspecified Qualified Code(s): E03.9 - Hypothyroidism, unspecified Category: Medical (6) Right renal artery stenosis Current Visit: No Status: Acute Code(s): I70.1 - Atherosclerosis of renal artery Category: Medical Addendum entered and electronically signed by EDVIN LADD 10/09/18 17:07:
[2018-09-25 12:19] VITALS: BP 134/20; RESP 18; O2SAT 98
== END 2018-09-25 13:00 | disposition home or self-care (01) | DRG 378 ==
LOC: ER 08:12 → MED/SURG 12:47 → ICU 12:48 → MED/SURG 09-22 17:30
PROVIDERS: ADMIT Internal Medicine; ATTEND Internal Medicine